=== PATIENT | female | born 1955 | race Caucasian/White ===

== ENCOUNTER → 2023-11-16 07:58 | Outpatient (REF) | payer OTHER, SELFPAY | LOC: WDC 07:58 | PROVIDERS: ATTENDING PHYSICIAN Obstetrics & Gynecology; FAMILY PHYSICIAN Family Medicine | DX: Z12.31 Encounter for screening mammogram for malignant neoplasm of breast (principal) | CPT/HCPCS: 77063; 77067 ==

== ENCOUNTER → 2024-01-08 07:34 | Outpatient (REF) | payer OTHER, SELFPAY | LOC: EMG 07:34 | PROVIDERS: ATTENDING PHYSICIAN Internal Medicine Rheumatology; FAMILY PHYSICIAN Family Medicine | DX: R20.0 Anesthesia of skin (principal) | CPT/HCPCS: 95886; 95910 ==

== ENCOUNTER → 2024-05-13 06:47 | Outpatient (REF) | payer OTHER, SELFPAY | LOC: PAVMRI 06:47 | PROVIDERS: ATTENDING PHYSICIAN Internal Medicine Rheumatology; FAMILY PHYSICIAN Family Medicine | DX: M25.562 Pain in left knee (principal); R29.898 Other symptoms and signs involving the musculoskeletal system; S89.92XD Unspecified injury of left lower leg, subsequent encounter | CPT/HCPCS: 73721 ==

== ENCOUNTER 2024-12-08 12:48 | Emergency (ER) | payer OTHER, SELFPAY ==
[2024-12-08 15:47] VITALS: BP 140/79
[2024-12-08] MEDS: NORCO 5/325 1 TABLET PO (15:50)
[2024-12-08 16:19] LABS: % Basophils 0.8 % (0-2); % Eosinophils 1.4 % (0-6); % Immature Granulocytes 0.6 % (0-0.5); % Lymphocytes 29.6 % (20.5-51.1); % Monocytes 8.4 % (1.7-9.3); % Neutrophils 59.2 % (42.2-75.2); Absolute Basophils 0.1 10^3/uL (0-0.2); Absolute Eosinophils 0.2 10^3/uL (0-0.7); Absolute Immature Granulocytes 0.1 10^3/uL (0-0.05); Absolute Lymphocytes 3.1 10^3/uL (1.2-3.4); Absolute Monocytes 0.9 10^3/uL (0.1-0.6); Absolute Neutrophils 6.3 10^3/uL (1.4-6.5); Hematocrit 34.6 % (37.0-47.0); Hemoglobin 11.7 g/dL (12.0-16.0); Mean Corp Hgb Conc. 33.8 g/dL (33.0-37.0); Mean Corpuscular Hgb 32.1 pg (27.0-31.0); Mean Corpuscular Volume 95.1 fL (81.0-99.0); Mean Platelet Volume 7.9 fL (7.4-10.4); Nucleated Red Blood Cells % 0 %; Platelet Count 306 10^3/uL (130-400); Red Blood Cell Count 3.64 10^6/uL (4.20-5.40); Red Cell Dist. Width 14.1 % (11.5-14.5); White Blood Cell Count 10.6 10^3/uL (4.8-10.8)
[2024-12-08 16:33] LABS: Erythrocyte Sed Rate 85 mm/hour (0-20)
[2024-12-08 16:41] LABS: Blood Urea Nitrogen 12 mg/dl (7-17); Calcium 9.6 mg/dl (8.4-10.2); Carbon Dioxide 25 mmol/L (22-30); Chloride 106 mmol/L (98-107); Glucose 86 mg/dl (70-99); Potassium 3.9 mmol/L (3.5-5.1); Sodium 137 mmol/L (135-145); eGFR > 60.00
--- NOTE | 2024-12-08 17:27 | ED.GENMED ---
History of Present Illness
General
Chief Complaint: Musculo-Skeletal Complaint
Source: patient
Exam Limitations: none
Time Seen by Provider: 12/08/24 14:17
History of Present Illness
History of Present Illness:
69-year-old female woke with nontraumatic left arm pain. Mostly left wrist and forearm. Patient with recent C3-C6 laminectomy and fusion on November 26. Restarted Eliquis 4 to 5 days ago. Only takes 2.5 twice daily as more of a preventative
dose. Denies numbness tingling weakness. Denies systemic infectious symptoms.
Past History
Past History
ED Past Medical History: Hypercholesterolemia and Other (Factor V Leiden, DVT)
ED Past Surgical History: Orthopedic and Other (Knee replacement, spinal fusion June 2017)
Social History
Tobacco: Non-smoker
Living: with family
Review of Systems
Review of Systems
All Other Systems: Not applicable
Constitutional: Denies fever or chills
Respiratory: Reports no symptoms
Cardiac: Reports no symptoms
Phy Exam
Physical Exam
Physical Exam:
GENERAL: Alert and oriented in no apparent distress
EYE: Orbits normal.
NECK: Collar in place
CARDIAC: Regular rate and rhythm
LUNGS: No respiratory distress
NEUROLOGICAL: Alert and oriented , grossly non-focal
SKIN: Warm and dry, no rash or lesion, no discoloration, skin intact.
MUSCULOSKELETAL: Mild swelling of the left wrist with tenderness. No significant warmth no erythema. No forearm swelling. No proximal arm swelling. Good distal ulcers and color.
PSYCH: Normal and appropriate interaction.
Course
Orders/Labs/Results
Orders:
Orders
12/08/24 12:50
US Periph Venous UPPER Ext LT Urgent
Comment:
Reason For Exam: swelling
12/08/24 13:05
CR Hand - Left Min 3 Views Urgent
Comment:
Reason For Exam: pain, swelling
12/08/24 15:45
Splints/Slings/Crut- Treatment ONCE
Hydrocodone 5/APAP 325 [[place] 5/325] 1 tablet PO NOW STA
12/08/24 16:06
IV Insert/Care/Rem.- Treatment PRN
12/08/24 16:13
Basic Metabolic Panel Urgent
CRP [C-Reactive Protein] Urgent
Complete Blood Count/With Diff Urgent
Erythrocyte Sed Rate Urgent
Abnormal Lab Results
12/08/24
16:13
RBC 3.64 L 10^6/uL
(4.20-5.40)
Hgb 11.7 L g/dL
(12.0-16.0)
Hct 34.6 L %
(37.0-47.0)
MCH 32.1 H pg
(27.0-31.0)
Abs Immat Gran (auto) 0.1 H 10^3/uL
(0-0.05)
Absolute Monos (auto) 0.9 H 10^3/uL
(0.1-0.6)
Immature Gran % 0.6 H %
(0-0.5)
ESR 85 H mm/hour
(0-20)
Creatinine 0.4 L mg/dL
(0.6-1.0)
C-Reactive Protein 21.70 H mg/L
(0.0-10.00)
12/08/24 16:13
12/08/24 16:13
Vital Signs
Initial and Last Documented VS:
Initial Vital Signs
Temp Pulse Resp Pulse Ox
98.4 F 91 18 96
12/08/24 12:57 12/08/24 12:57 12/08/24 12:57 12/08/24 12:57
Last Documented Vital Signs
Temp Pulse Resp BP Pulse Ox
98.4 F 71 16 138/77 97
12/08/24 12:57 12/08/24 17:35 12/08/24 17:35 12/08/24 17:35 12/08/24 17:35
MDM/Problems Addressed
Differential Diagnosis Includes:
Patient with nonocclusive clot in the left brachial vein. Discussed with hematology oncology. Patient states neurosurgery was fine with her on full anticoagulation. Will increase her dose to 5 mg twice daily and follow-up ultrasound. As for the
wrist swelling. Low suspicion for septic arthritis. There is no erythema no warmth she has no systemic symptoms. I did discuss with neurosurgery about any concern of seeding her cervical surgery. They stated this would not be a concern unless
she develops systemic symptoms. I did labs hoping for reasonable inflammatory markers yet understanding that with her underlying autoimmune diseases and with recently having spine surgery that her inflammatory markers likely elevated incidentally.
White count is reasonable. CRP is reasonable. She does have elevated ESR. Significance uncertain. Lengthy discussion with the patient and her significant other. Options are to do an arthrocentesis with the risk associated with arthrocentesis
versus conservative management. Given a very low clinical suspicion given that she is already anticoagulated we will treat this conservatively and watch closely as an outpatient. Patient is comfortable with this approach
*Radiology
Radiology exam reviewed: radiology read reviewed (No acute findings) and other (Nonocclusive DVT left brachial vein)
*Pulse Oximetry
Patient hypoxic: no
*Critical Care Note
Total Time (30-74mins, 75-104mins- exclusive of procedures): Not Applicable
Data Reviewed
Review of Other/Old Records Reveals: Labs, Records and Testing
Source: patient
ED Attending Note
-
Portions of this chart may have been created with voice recognition software.� Occasional wrong word or��sound alike� substitutions may have occurred due to the inherent limitations of voice recognition software.
Discharge Plan
Departure
Patient Disposition: Home (Routine Discharge)
Date of Disposition: 12/08/24
Time of Disposition: 17:31
Patient with high blood pressure during this ER visit?: Yes
Discharge Problem:
Nonocclusive DVT left brachial vein, Left wrist swelling, Recent cervical fusion
Instructions: Deep vein thrombosis (blood clot in the arm), BLOOD PRESSURE
Prescriptions:
New
hydrocodone-acetaminophen 5-300 mg tablet
1 tab PO Q4H PRN (Reason: Pain) Qty: 14 0RF
Eliquis 5 mg tablet
5 mg PO BID Qty: 60 0RF
No Action
tramadol 50 MG tablet
25 mg PO TIDPRN PRN (Reason: pain)
Patient Comments:
hasn't taken in about a month.
tamsulosin 0.4 MG capsule
0.4 mg PO HS
prednisone 2.5 MG tablet
3 mg PO DAILY
pantoprazole 40 MG tablet,delayed release (DR/EC)
40 mg PO DAILY
duloxetine 30 MG capsule,delayed release(DR/EC)
30 mg PO DAILY
hydrocodone-acetaminophen [Vicodin] 1 EACH tablet
1 ea PO PRN PRN (Reason: pain)
armodafinil [Nuvigil] 150 MG tablet
150 mg PO DAILY
cholecalciferol (vitamin D3) 2,000 UNIT tablet
2,000 unit PO DAILY
Vusion Ointment Tube
1 % TOP PRN
Patient Comments:
applies to buttocks, percentage is 0.25% miconazale nitrate, 15% zinc oxide,
81.35% white petroleum
doxycycline hyclate 100 MG capsule
100 mg PO DAILY
apixaban [Eliquis] 2.5 MG tablet
2.5 mg PO BID
golimumab [Simponi] 100 MG/ML syringe
1 ea SC MONTHLY
Symbicort
1 puff inhalation PRN PRN (Reason: SOB)
Referrals:
Yuan Frazier DO [Active] - Follow up in 2-3 days
Sebastien Hodge MD [Family Provider] - Follow up in 2-3 days
Activity Restrictions/Additional Instructions:
Use splint on the arm
Vicodin for pain. The prescription was sent to your pharmacy
Get closely rechecked in the next 1 or 2 days. Return immediately with increased pain increased swelling fever systemic infectious symptoms etc.
Repeat ultrasound in 1 week
Increase your Eliquis to 5 mg twice a day
Interventions
Interventions:
*Risk Screen - Suicide Last Done: 12/08/24 12:57
*General Assessment Last Done: 12/08/24 12:57
*Neglect/Abuse Screening Last Done: 12/08/24 14:19
ED- Fall Risk Assessment Last Done: 12/08/24 15:54
*ED COVID-19 Vaccine History Last Done: 12/08/24 12:57
*Nursing Disposition Last Done: 12/08/24 17:50
ED-Musculoskeletal Assessment Last Done: 12/08/24 15:23
Discharge Date and Time
Discharge Date/Time: 12/08/24 17:51
Print Language: UZBEK
[2024-12-08 17:35] VITALS: BP 138/77
== END 2024-12-08 17:51 | disposition home or self-care (01) ==
LOC: EMR 12:48
PROVIDERS: EMERGENCY PHYSICIAN Emergency Medicine; FAMILY PHYSICIAN Family Medicine
DX: M79.602 Pain in left arm (principal); I82.622 Acute embolism and thrombosis of deep veins of left upper extremity; M25.432 Effusion, left wrist; R03.0 Elevated blood-pressure reading, without diagnosis of hypertension; E78.00 Pure hypercholesterolemia, unspecified; D68.51 Activated protein C resistance; Z86.718 Personal history of other venous thrombosis and embolism; M43.22 Fusion of spine, cervical region; Z98.1 Arthrodesis status; Z96.659 Presence of unspecified artificial knee joint; Z88.5 Allergy status to narcotic agent
CPT/HCPCS: 99284; 73130; 80048; 85025; 85652; 86140; 93971

== ENCOUNTER 2024-12-09 08:08 | Emergency (ER) | payer OTHER, SELFPAY ==
[2024-12-09 08:13] VITALS: BP 149/83
--- NOTE | 2024-12-09 08:41 | ED.GENMED ---
History of Present Illness
<Monique Cuevas PA-C - Last Filed: 12/09/24 17:59>
General
Chief Complaint: Musculo-Skeletal Complaint
Source: patient and records
Exam Limitations: none
Time Seen by Provider: 12/09/24 08:30
History of Present Illness
History of Present Illness:
69yo left hand dominant female with a history of recent C3-C6 laminectomy and fusion on 11/26/24 at [place], prior DVT/PE on Eliquis, and psoriatic arthritis on chronic prednisone presenting with her for evaluation of left wrist and arm pain.
Symptoms initially started yesterday morning. She woke up yesterday with atraumatic swelling in the left wrist/hand. states it initially looked like a bug bite. She was seen in the ED yesterday for these symptoms. X-rays of the hand
revealed degenerative changes. Venous duplex showed a nonocclusive thrombus in the proximal to mid left brachial vein. Her Eliquis dose was increased from 2.5mg BID to 5mg BID. She was given a universal thumb spica brace as well. She reports
waking up this morning with worsening pain and swelling prompting repeat ED visit. She denies any fevers or chills.
Past History
<Monique Cuevas PA-C - Last Filed: 12/09/24 17:59>
Past History
ED Past Medical History: Hypercholesterolemia and Other (Factor V Leiden, DVT)
ED Past Surgical History: Orthopedic and Other (Knee replacement, spinal fusion June 2017)
Social History
Tobacco: Non-smoker
Living: with family
Phy Exam
<Monique Cuevas PA-C - Last Filed: 12/09/24 17:59>
General Physical Exam
General Presentation: well appearing and no apparent distress
General age: appears stated age
General Skin: warm and dry
General Habitus: normal
General Mental: alert
ENT Exam
ENT Exam: normocephalic
Pulmonary Exam
Pulmonary Exam: no respiratory distress
Neurological Exam
Neurological Exam: alert
Musculoskeletal Exam
Musculoskeletal Exam: other (L wrist: Diffuse swelling noted to dorsum of wrist with warmth and faint erythema. +Tenderness to light palpation of joint. ROM decreased 2/2 pain. No swelling proximal to wrist. 2+ radial pulse and sensation intact. )
Skin Exam
Skin Exam: warm/dry
Psychiatric Exam
Psychiatric Exam: normal mood/affect
Course
<Monique Cuevas PA-C - Last Filed: 12/09/24 17:59>
Orders/Labs/Results
Orders:
Orders
12/09/24 08:40
HYDROmorphone [Dilaudid] 0.25 mg IV NOW STA
Venous Doppler Upr Ext Left [US Periph Venous UPPER Ext LT] Urgent
Comment:
Reason For Exam: Worsening L arm swelling
12/09/24 08:48
HYDROmorphone [Dilaudid] 0.5 mg IV NOW STA
Ketorolac [Toradol] 15 mg IV NOW STA
12/09/24 09:06
CRP [C-Reactive Protein] Urgent
Complete Blood Count/With Diff Urgent
Comprehensive Metabolic Panel Urgent
ESR [Erythrocyte Sed Rate] Urgent
12/09/24 10:20
ORTHOPEDIC CONSULT Urgent
Consulting Provider: Evelio Palma
Was physician already notified: Yes
12/09/24 12:43
IRAD CONSULT Urgent
Consulting Provider: Jamshid Davis
Was physician already notified: Yes
Reason for Consult/Procedure: L wrist aspiration
Acknowledgement that appropriate orders are entered: Yes
12/09/24 14:21
HYDROmorphone [Dilaudid] 0.5 mg IV NOW STA
12/09/24 14:52
Midazolam HCl [Versed] 2 mg .ROUTE .STK-MED ONE
12/09/24 14:53
Fentanyl Citrate/Pf [Sublimaze] 100 mcg .ROUTE .STK-MED ONE
12/09/24 15:10
Lidocaine 2% [Xylocaine 2% Mdv] 20 ml .ROUTE .STK-MED ONE
12/09/24 15:20
Fluid Culture with Gram Stain Urgent
MARIJA Source: Joint Fluid
Specimen Description:
Date Specimen was Collected: 12/09/24
Time Specimen was Collected: 15:20
Comment: left wrist aspiration
Abnormal Lab Results
12/09/24
09:06
WBC 12.3 H 10^3/uL
(4.8-10.8)
RBC 3.59 L 10^6/uL
(4.20-5.40)
Hgb 11.4 L g/dL
(12.0-16.0)
Hct 35.6 L %
(37.0-47.0)
MCV 99.2 H fL
(81.0-99.0)
MCH 31.8 H pg
(27.0-31.0)
MCHC 32.0 L g/dL
(33.0-37.0)
Abs Immat Gran (auto) 0.1 H 10^3/uL
(0-0.05)
Absolute Neuts (auto) 8.5 H 10^3/uL
(1.4-6.5)
Absolute Monos (auto) 1.2 H 10^3/uL
(0.1-0.6)
Lymphocytes % 19.1 L %
(20.5-51.1)
Monocytes % 9.9 H %
(1.7-9.3)
ESR 68 H mm/hour
(0-20)
Creatinine 0.5 L mg/dL
(0.6-1.0)
Glucose 106 H mg/dl
(70-99)
C-Reactive Protein 43.60 H mg/L
(0.0-10.00)
12/09/24 09:06
12/09/24 09:06
Vital Signs
Initial and Last Documented VS:
Initial Vital Signs
Temp Pulse Resp BP Pulse Ox
98.6 F 97 16 149/83 98
12/09/24 08:13 12/09/24 08:13 12/09/24 08:13 12/09/24 08:13 12/09/24 08:13
Last Documented Vital Signs
Temp Pulse Resp BP Pulse Ox
99.2 F 94 19 133/79 98
12/09/24 14:42 12/09/24 16:45 12/09/24 16:45 12/09/24 16:45 12/09/24 16:45
<Edward Cisneros, DO - Last Filed: 12/09/24 10:55>
Orders/Labs/Results
Orders:
Orders
12/09/24 08:40
HYDROmorphone [Dilaudid] 0.25 mg IV NOW STA
Venous Doppler Upr Ext Left [US Periph Venous UPPER Ext LT] Urgent
Comment:
Reason For Exam: Worsening L arm swelling
12/09/24 08:48
HYDROmorphone [Dilaudid] 0.5 mg IV NOW STA
Ketorolac [Toradol] 15 mg IV NOW STA
12/09/24 09:06
CRP [C-Reactive Protein] Urgent
Complete Blood Count/With Diff Urgent
Comprehensive Metabolic Panel Urgent
ESR [Erythrocyte Sed Rate] Urgent
12/09/24 10:20
ORTHOPEDIC CONSULT Urgent
Consulting Provider: Evelio Palma
Was physician already notified: Yes
12/09/24 12:43
IRAD CONSULT Urgent
Consulting Provider: Jamshid Davis
Was physician already notified: Yes
Reason for Consult/Procedure: L wrist aspiration
Acknowledgement that appropriate orders are entered: Yes
12/09/24 14:21
HYDROmorphone [Dilaudid] 0.5 mg IV NOW STA
12/09/24 14:52
Midazolam HCl [Versed] 2 mg .ROUTE .STK-MED ONE
12/09/24 14:53
Fentanyl Citrate/Pf [Sublimaze] 100 mcg .ROUTE .STK-MED ONE
12/09/24 15:10
Lidocaine 2% [Xylocaine 2% Mdv] 20 ml .ROUTE .STK-MED ONE
12/09/24 15:20
Fluid Culture with Gram Stain Urgent
MARIJA Source: Joint Fluid
Specimen Description:
Date Specimen was Collected: 12/09/24
Time Specimen was Collected: 15:20
Comment: left wrist aspiration
Abnormal Lab Results
12/09/24
09:06
WBC 12.3 H 10^3/uL
(4.8-10.8)
RBC 3.59 L 10^6/uL
(4.20-5.40)
Hgb 11.4 L g/dL
(12.0-16.0)
Hct 35.6 L %
(37.0-47.0)
MCV 99.2 H fL
(81.0-99.0)
MCH 31.8 H pg
(27.0-31.0)
MCHC 32.0 L g/dL
(33.0-37.0)
Abs Immat Gran (auto) 0.1 H 10^3/uL
(0-0.05)
Absolute Neuts (auto) 8.5 H 10^3/uL
(1.4-6.5)
Absolute Monos (auto) 1.2 H 10^3/uL
(0.1-0.6)
Lymphocytes % 19.1 L %
(20.5-51.1)
Monocytes % 9.9 H %
(1.7-9.3)
ESR 68 H mm/hour
(0-20)
Creatinine 0.5 L mg/dL
(0.6-1.0)
Glucose 106 H mg/dl
(70-99)
C-Reactive Protein 43.60 H mg/L
(0.0-10.00)
12/09/24 09:06
12/09/24 09:06
Vital Signs
Initial and Last Documented VS:
Initial Vital Signs
Temp Pulse Resp BP Pulse Ox
98.6 F 97 16 149/83 98
12/09/24 08:13 12/09/24 08:13 12/09/24 08:13 12/09/24 08:13 12/09/24 08:13
Last Documented Vital Signs
Temp Pulse Resp BP Pulse Ox
99.2 F 94 19 133/79 98
12/09/24 14:42 12/09/24 16:45 12/09/24 16:45 12/09/24 16:45 12/09/24 16:45
<Monique Cuevas PA-C - Last Filed: 12/09/24 17:59>
MDM/Problems Addressed
Differential Diagnosis Includes:
69yoF here with atraumatic L wrist pain/swelling x 1 day. Seen in the ED yesterday for the same. Had a venous duplex which showed a nonocclusive thrombus in the brachial vein. Woke up today with worsening symptoms. Denies f/c. Hx of recent cervical
fusion 2 weeks ago at [place]. VSS. There is diffuse swelling to the L wrist with faint erythema, warmth, and decreased ROM. LUE is neurovascularly intact. Differential diagnosis includes but is not limited to: gout, pseudogout, other inflammatory
arthritis, less likely septic joint
Initial ED plan: Check CBC, CMP, ESR/CRP, and repeat venous duplex as her PCP specifically requested this.
<Monique Cuevas PA-C - Last Filed: 12/09/24 17:59>
*Critical Care Note
Total Time (30-74mins, 75-104mins- exclusive of procedures): Not Applicable
<Monique Cuevas PA-C - Last Filed: 12/09/24 17:59>
Update Note
Update Note:
Venous duplex today is negative for DVT. Discussed with radiologist who reviewed ultrasound from yesterday and feels that yesterday's findings were likely related to artifact. ESR downtrending from 85 yesterday to 68 today although both white count
and CRP have increased. Patient was evaluated by orthopedics team. Per ortho, overall low suspicion for septic joint although joint aspiration can be considered. Given that this is patient's 2nd ED visit within 24 hours, IR consulted for
arthrocentesis. <1cc of joint fluid obtained by IR which reportedly appeared blood tinged without cloudiness/purulence. The amount of fluid obtained only enough to send for culture and lab unable to perform gram stain/cell counts/crystal analysis.
Orthopedics recommending increased prednisone dose and wrist brace. She was given a prescription for 40mg prednisone x 5 days but she was advised to discuss this with her neurosurgeon before starting this. Advised f/u with PCP and orthopedics. ED
return precautions discussed including fevers. Patient expressed understanding and was discharged in stable condition.
ED Attending Note
<Monique Cuevas PA-C - Last Filed: 12/09/24 17:59>
-
Portions of this chart may have been created with voice recognition software.� Occasional wrong word or��sound alike� substitutions may have occurred due to the inherent limitations of voice recognition software.
<Edward Cisneros DO - Last Filed: 12/09/24 10:55>
ED Attending Note
Patient seen and examined by attending physician: Yes
I performed the substantive portion of visit, reviewed & personally made and approve the management plan that is documented in note by myself or CALVIN.: Yes
I performed a history and physical exam of patient and discussed management with resident, I reviewed resident's note and agree with documented findings and plan of care.: Yes
ED Attending Note:
I evaluated the patient at bedside. Mild diffuse swelling primarily to the dorsal aspect of the wrist/just distal to the wrist. Ultrasound imaging today shows no clot. Sed rate 68 down from 85 yesterday however CRP went from 22 to 44. Awaiting
orthopedics
Discharge Plan
Departure
Patient Disposition: Home (Routine Discharge)
Date of Disposition: 12/09/24
Time of Disposition: 16:29
Patient with high blood pressure during this ER visit?: No
Discharge Problem:
Pain and swelling of left wrist
Instructions: Swollen Joints (DC)
Prescriptions:
New
prednisone 20 mg tablet
40 mg PO DAILY 5 Days Qty: 10 0RF
No Action
tramadol 50 MG tablet
25 mg PO TIDPRN PRN (Reason: pain)
Patient Comments:
hasn't taken in about a month.
tamsulosin 0.4 MG capsule
0.4 mg PO HS
prednisone 2.5 MG tablet
3 mg PO DAILY
pantoprazole 40 MG tablet,delayed release (DR/EC)
40 mg PO DAILY
duloxetine 30 MG capsule,delayed release(DR/EC)
30 mg PO DAILY
hydrocodone-acetaminophen [Vicodin] 1 EACH tablet
1 ea PO PRN PRN (Reason: pain)
armodafinil [Nuvigil] 150 MG tablet
150 mg PO DAILY
cholecalciferol (vitamin D3) 2,000 UNIT tablet
2,000 unit PO DAILY
Vusion Ointment Tube
1 % TOP PRN
Patient Comments:
applies to buttocks, percentage is 0.25% miconazale nitrate, 15% zinc oxide,
81.35% white petroleum
doxycycline hyclate 100 MG capsule
100 mg PO DAILY
apixaban [Eliquis] 2.5 MG tablet
2.5 mg PO BID
golimumab [Simponi] 100 MG/ML syringe
1 ea SC MONTHLY
Symbicort
1 puff inhalation PRN PRN (Reason: SOB)
hydrocodone-acetaminophen 5-300 mg tablet
1 tab PO Q4H PRN (Reason: Pain) Qty: 14 0RF
Eliquis 5 mg tablet
5 mg PO BID Qty: 60 0RF
Referrals:
Evelio Palma MD [Active] -
Sebastien Hodge MD [Family Provider] -
Activity Restrictions/Additional Instructions:
Take prednisone 40mg for 5 days. Please discuss with your neurosurgeon before starting this.
Continue taking Vicodin as needed. Wear wrist brace for support.
Please follow-up with orthopedics and your family doctor. Return to the ER with any worsening symptoms or fevers.
Interventions
Interventions:
*Risk Screen - Suicide Last Done: 12/09/24 08:13
*General Assessment Last Done: 12/09/24 09:33
*Neglect/Abuse Screening Last Done: 12/09/24 08:13
ED- Fall Risk Assessment Last Done: 12/09/24 09:33
*ED COVID-19 Vaccine History Last Done: 12/09/24 09:33
*Nursing Disposition Last Done: 12/09/24 16:45
ED-Musculoskeletal Assessment Last Done: 12/09/24 09:33
Discharge Date and Time
Discharge Date/Time: 12/09/24 16:45
Print Language: AMHARIC
[2024-12-09] MEDS: TORADOL 15 MG IV (09:07)
[2024-12-09] MEDS: DILAUDID 0.5 MG IV (09:08)
[2024-12-09 09:24] LABS: % Basophils 0.5 % (0-2); % Eosinophils 0.9 % (0-6); % Immature Granulocytes 0.5 % (0-0.5); % Lymphocytes 19.1 % (20.5-51.1); % Monocytes 9.9 % (1.7-9.3); % Neutrophils 69.1 % (42.2-75.2); Absolute Basophils 0.1 10^3/uL (0-0.2); Absolute Eosinophils 0.1 10^3/uL (0-0.7); Absolute Immature Granulocytes 0.1 10^3/uL (0-0.05); Absolute Lymphocytes 2.3 10^3/uL (1.2-3.4); Absolute Monocytes 1.2 10^3/uL (0.1-0.6); Absolute Neutrophils 8.5 10^3/uL (1.4-6.5); Hematocrit 35.6 % (37.0-47.0); Hemoglobin 11.4 g/dL (12.0-16.0); Mean Corpuscular Hgb 31.8 pg (27.0-31.0); Mean Corpuscular Volume 99.2 fL (81.0-99.0); Mean Platelet Volume 8.1 fL (7.4-10.4); Nucleated Red Blood Cells % 0 %; Platelet Count 321 10^3/uL (130-400); Red Blood Cell Count 3.59 10^6/uL (4.20-5.40); White Blood Cell Count 12.3 10^3/uL (4.8-10.8)
[2024-12-09 09:38] LABS: ALT (SGPT) 26 U/L (0-35); AST (SGOT) 22 U/L (14-36); Albumin 3.5 g/dl (3.5-5.0); Alkaline Phosphatase 74 U/L (38-126); Blood Urea Nitrogen 10 mg/dl (7-17); Calcium 9.6 mg/dl (8.4-10.2); Carbon Dioxide 29 mmol/L (22-30); Chloride 102 mmol/L (98-107); Glucose 106 mg/dl (70-99); Potassium 4.2 mmol/L (3.5-5.1); Sodium 136 mmol/L (135-145); Total Bilirubin 0.7 mg/dl (0.2-1.3); Total Protein 6.5 g/dl (6.3-8.2); eGFR > 60.00
[2024-12-09 10:10] LABS: Erythrocyte Sed Rate 68 mm/hour (0-20)
[2024-12-09 12:25] VITALS: BP 137/61
--- NOTE | 2024-12-09 12:25 | CON.ORTHO ---
Consultation
-
Date/Time Consultation Requested: 12/09/3034; time unknown
Date/Time Consultation Performed: 12/09/2024; 1200
Requesting Provider: unknown
Performing Provider: Mary Alice Hernandez PA-C
Reason for Consultation: Left wrist and hand pain and swelling
Consultation - Orthopedics
History
Ms. Young is a 69 year old LHD female with PMH of recent C3-6 laminectomy and fusion performed by Dr. Gramajo at [place], Factor V Leiden with prior DVT/PE on Eliquis and psoriatic arthritis on chronic prednisone. Her is present at the bedside.
She reports onset of pain and swelling in her wrist and hand yesterday. She denies any falls or new injuries. She reports her symptoms started as a small bump on the dorsal aspect of her hand which resembled a spider bite. She then noticed
progressively worsening pain and swelling since. She did initially present to the ED yesterday, but was discharged home. She returned today due to worsening symptoms. She endorses pain in her CMC joint, and generally along the ulnar aspect of her
hand and wrist. She denies numbness/tingling or other radicular symptoms. She reports her IV medications temporarily relieve her symptoms. She denies fever, chills or other constitutional symptoms.
She denies PMH of gout or pseudogout.
She does report a history of extremity swelling and pain, and DVT following her bilateral oophorectomy years ago. Ultrasound yesterday revealed non occlusive clots, and her Eliquis dose was increased. Her ultrasound today was clear of any DVT.
Allergies / Home Medications
Allergy/AdvReac Type Severity Reaction Status Date / Time
oxycodone HCl [From Percocet] Allergy itchy like Verified 12/09/24 08:16
bugs
crawling
all over me
�Medication �Instructions �Recorded
Vusion Ointment 1 % TOP PRN 06/10/14
armodafinil 150 mg tablet (Nuvigil) 150 mg PO DAILY 06/10/14
cholecalciferol (vitamin D3) 50 2,000 unit PO DAILY 06/10/14
mcg (2,000 unit) tablet
duloxetine 30 mg capsule,delayed 30 mg PO DAILY 06/10/14
release
hydrocodone 5 mg-acetaminophen 300 1 ea PO PRN PRN pain 06/10/14
mg tablet (Vicodin)
pantoprazole 40 mg tablet,delayed 40 mg PO DAILY 06/10/14
release
prednisone 2.5 mg tablet 3 mg PO DAILY 06/10/14
tamsulosin 0.4 mg capsule 0.4 mg PO HS 06/10/14
tramadol 50 mg tablet 25 mg PO TIDPRN PRN pain 06/10/14
Symbicort 1 puff inhalation PRN PRN SOB 07/31/17
apixaban 2.5 mg tablet (Eliquis) 2.5 mg PO BID 07/31/17
doxycycline hyclate 100 mg capsule 100 mg PO DAILY 07/31/17
golimumab 100 mg/mL subcutaneous 1 ea SC MONTHLY 07/31/17
syringe (Simponi)
apixaban 5 mg tablet (Eliquis) 5 mg PO BID #60 tabs 12/08/24
hydrocodone 5 mg-acetaminophen 300 1 tab PO Q4H PRN Pain #14 tabs 12/08/24
mg tablet
Vital Signs / Lab Results
Temp Pulse Resp BP Pulse Ox
98.6 F 97 16 149/83 98
12/09/24 08:13 12/09/24 08:13 12/09/24 08:13 12/09/24 08:13 12/09/24 08:13
12/09/24 09:06
12/09/24 09:06
WBC 10.6-->12.3
ESR 85-->68
CRP 21.7-->43.6
XR Left Wrist FINDINGS:
>The osseous structures comprising the left hand appear intact.
>There is no recent fracture, dislocation or focal cortical bony destructive process.
>Some hypertrophic degenerative changes are seen most prominent about the left first carpal-metacarpal joint with some joint space narrowing.
>Faint calcifications are seen at the approximate level of the triangular fibrocartilage complex which could represent some mild chondrocalcinosis.
Directed exam of the left hand and wrist reveals generalized edema throughout the wrist, hand and fingers. There is a small amount of erythema surrounding a healed carpal tunnel incision on the palmar aspect of her hand, but otherwise no significant
erythema or lesions. Tender to palpation most notably over the CMC joint, and along the dorsal and volar aspect of the wrist joint. Very limited flexion of the fingers secondary to pain and swelling. Able to flex/extend/supinate/pronate wrist. Pain
with radial deviation. Strength testing difficulty secondary to patient discomfort. Sensation intact to light touch. capillary refill <2 seconds.
Assessment / Plan
Left hand and pain/swelling
--Guerline has experienced about 2 days of left wrist and hand pain and swelling. I am not overly concerned for infection based on her exam today. Her WBC are slightly elevated from yesterday, as is her CRP, but her ESR has trended down. Her x-rays
show degenerative changes and chondrocalcinosis, which makes me more suspicious for pseudogout versus a stress response following her recent cervical fusion. I would recommend immobilization in a wrist brace, and a higher dose steroid for pain if
ok'd by her surgeon. I do not feel an aspiration will significantly change treatment course, but this could be considered. Continue pain management per primary.
[2024-12-09 14:42] VITALS: BP 132/73; BP_SYST 98
[2024-12-09 15:42] VITALS: BP 133/81
[2024-12-09 16:45] VITALS: BP 133/79
== END 2024-12-09 16:45 | disposition home or self-care (01) ==
LOC: EMR 08:08
PROVIDERS: Physician Assistant; CONSULT PHYSICIAN Radiology Vascular & Interventional Radiology; CONSULT PHYSICIAN Specialist; EMERGENCY PHYSICIAN Emergency Medicine; FAMILY PHYSICIAN Family Medicine
DX: M25.532 Pain in left wrist (principal); M25.432 Effusion, left wrist; M79.642 Pain in left hand; D68.51 Activated protein C resistance; Z86.711 Personal history of pulmonary embolism; Z86.718 Personal history of other venous thrombosis and embolism; Z98.1 Arthrodesis status; E78.00 Pure hypercholesterolemia, unspecified; L40.50 Arthropathic psoriasis, unspecified; Z79.52 Long term (current) use of systemic steroids; Z79.01 Long term (current) use of anticoagulants
CPT/HCPCS: 99285; 96374; 96375; 20605; 76942; 80053; 85025; 85652; 86140; 87015; 87070; 87205; 93971; 99152

== ENCOUNTER → 2025-08-29 13:40 | Outpatient (REF) | payer OTHER, SELFPAY | LOC: WDC 13:40 | PROVIDERS: ATTENDING PHYSICIAN Obstetrics & Gynecology; FAMILY PHYSICIAN Family Medicine | DX: Z12.31 Encounter for screening mammogram for malignant neoplasm of breast (principal) | CPT/HCPCS: 77063; 77067 ==